=== PATIENT | male | born 1940 | race Caucasian/White ===

== ENCOUNTER 2020-12-14 17:06 | Inpatient (IN) ==
[2020-12-14] MEDS ORDERED: VANCOMYCIN INJ 1,250 MG in SODIUM CHLORIDE 0.9% 250 ML IV STA (17:47)
[2020-12-14] MEDS ORDERED: LACTATED RINGERS 500 ML IV ONE (17:47)
[2020-12-14] MEDS ORDERED: VANCOMYCIN 1,000 MG VIAL ONE (18:23)
[2020-12-14 18:58] LABS: Basophils % 0.1 % (0.0-0.8); Hematocrit 32.4 VOL% (42.0-52.0); Hemoglobin 10.5 GM/DL (14.0-18.0); Immature Granulocytes % 0.6 %; Immature Granulocytes Absolute 0.05 #; Lymphocytes # 0.1 10*3/uL (1.4-4.0); Lymphocytes % 1.6 % (21.2-54.2); Mean Corpuscular HGB Conc 32.4 GM/DL (32-36); Mean Corpuscular Volume 108.4 FL (87-102); Mean Platelet Volume 12.6 FL (9.6-12.0); Monocytes % 4.6 % (1.7-12.7); NRBC # 0.07 10*3/uL; Neutrophils % 93.1 % (38.7-73.9); Platelet Count 49 T/CUMM (130-400); Red Blood Count 2.99 MC/CUMM (3.8-5.5); Red Cell Distribution Width 16.1 % (9.3-17.3); White Blood Count 8.3 T/CUMM (4-12)
[2020-12-14] MEDS ORDERED: MORPHINE 2 MG/1 ML SYRINGE IV STA (19:04)
[2020-12-14 19:22] LABS: Bilirubin,Urine Negative (Negative); Blood, Urine Small mg/dL (Negative); Glucose,Urine (UA) Negative (Negative); Ketones,Urine Negative (Negative); Mucus,Urine Occasional /LPF (Occasional); Nitrite,Urine Negative (Negative); Protein,Urine 30 MG/DL; RBC,Urine 7 /HPF (0-4); Squamous Epithelial Cell,Urine Occasional /HPF (0-10); Urine Appearance CLEAR (Clear); Urine Color Yellow (Yellow); Urine Specific Gravity 1.055 (1.001-1.035)
[2020-12-14 19:25] LABS: Albumin 2.2 G/DL (3.4-5.0); Bilirubin,Total 1.3 MG/DL (0.20-1.00); Calcium 8.5 MG/DL (8.5-10.1); Osmolality,Calculated 290.3 MOS/KG (273-304); Potassium 3.6 MMOL/L (3.5-5.1); Total Protein 4.7 G/DL (6.4-8.2)
[2020-12-14] MEDS: LACTATED RINGERS 1,000 ML IV SCH ×2 (19:37→23:50)
[2020-12-14 19:43] LABS: Band Neutrophils 18 % (0-10); Lymphocytes 1 % (20-55); Metamyelocytes 4 %; Segmented Neutrophils 71 % (50-85); Total Cells Counted 100
[2020-12-14 19:44] LABS: Anisocytosis 1+; Toxic Granulation 1+
[2020-12-14 19:45] LABS: Polychromasia Slight; Spherocytes Slight
[2020-12-14 19:46] LABS: Macrocytosis Slight; Microcytosis Slight; Platelet Estimate Decreased
[2020-12-14] MEDS ORDERED: GLUCAGON 1 MG VIAL IM PRN (20:33)
[2020-12-14] MEDS ORDERED: ONDANSETRON 4 MG/2 ML VIAL IV PRN (20:33)
[2020-12-14] MEDS ORDERED: DEXTROSE 50% 25 GM/50 ML VIAL IV PRN (20:33)
[2020-12-14] MEDS ORDERED: HYDROmorphone 2 MG/1 ML VIAL IV PRN (21:35)
[2020-12-14] MEDS ORDERED: BISACODYL 5 MG TABLET PO PRN (22:01)
[2020-12-15] MEDS: INSULIN REGULAR 100 UNIT/ML SUBCUT SCH ×5 (00:12→21:17)
[2020-12-15 02:39] LABS: Basophils % 0.1 % (0.0-0.8); Hematocrit 32.8 VOL% (42.0-52.0); Hemoglobin 10.5 GM/DL (14.0-18.0); Immature Granulocytes % 0.3 %; Immature Granulocytes Absolute 0.02 #; Lymphocytes # 0.1 10*3/uL (1.4-4.0); Lymphocytes % 1.8 % (21.2-54.2); Mean Corpuscular Volume 110.1 FL (87-102); Mean Platelet Volume 12.7 FL (9.6-12.0); Monocytes % 2.8 % (1.7-12.7); NRBC # 0.05 10*3/uL; Platelet Count 48 T/CUMM (130-400); Red Blood Count 2.98 MC/CUMM (3.8-5.5); Red Cell Distribution Width 16.2 % (9.3-17.3); White Blood Count 7.2 T/CUMM (4-12)
[2020-12-15 02:40] LABS: Bilirubin,Total 1.3 MG/DL (0.20-1.00); Calcium 8.6 MG/DL (8.5-10.1); Osmolality,Calculated 291.1 MOS/KG (273-304); Potassium 4.1 MMOL/L (3.5-5.1); Total Protein 5.1 G/DL (6.4-8.2)
[2020-12-15 03:10] LABS: Band Neutrophils 7 % (0-10); Hypochromasia Slight; Lymphocytes 3 % (20-55); Platelet Estimate Decreased; Segmented Neutrophils 88 % (50-85); Total Cells Counted 100
[2020-12-15] MEDS ORDERED: INFLUENZA VIRUS VACCINE 0.5 ML SYRINGE IM ONE (09:00)
[2020-12-15] MEDS: PANTOPRAZOLE 40 MG TABLET PO SCH (10:15)
[2020-12-15] MEDS: VANCOMYCIN INJ 1,250 MG in SODIUM CHLORIDE 0.9% 250 ML IV SCH (12:09)
[2020-12-15] MEDS: LACTATED RINGERS 1,000 ML IV SCH (12:09)
[2020-12-15] MEDS: predniSONE 20 MG TABLET PO SCH (16:56)
[2020-12-15] MEDS: carvediloL 6.25 MG TABLET PO SCH (16:56)
[2020-12-15] MEDS ORDERED: CLOPIDOGREL 75 MG TABLET PO SCH (21:00)
[2020-12-15] MEDS ORDERED: ASPIRIN EC 81 MG TABLET PO SCH (21:00)
[2020-12-15] MEDS ORDERED: amLODIPine 10 MG TABLET PO SCH (21:00)
[2020-12-15] MEDS: POLYETHYLENE GLYCOL POWDER 17 GM PACK PO SCH (21:17)
[2020-12-15] MEDS: SIMVASTATIN 20 MG TABLET PO SCH (21:18)
[2020-12-15] MEDS: ISOSORBIDE MONONITRATE 60 MG TABLET PO SCH (21:18)
[2020-12-15] MEDS: RANOLAZINE 500 MG TABLET PO SCH (21:18)
[2020-12-16] MEDS: LACTATED RINGERS 1,000 ML IV SCH ×3 (00:32→16:05)
[2020-12-16 05:38] LABS: Basophils % 0.3 % (0.0-0.8); Hematocrit 27.2 VOL% (42.0-52.0); Hemoglobin 8.7 GM/DL (14.0-18.0); Immature Granulocytes % 0.8 %; Immature Granulocytes Absolute 0.06 #; Lymphocytes # 0.2 10*3/uL (1.4-4.0); Lymphocytes % 2.4 % (21.2-54.2); Mean Corpuscular Volume 109.2 FL (87-102); Mean Platelet Volume 12.9 FL (9.6-12.0); Monocytes % 3.1 % (1.7-12.7); NRBC # 0.02 10*3/uL; Neutrophils % 93.4 % (38.7-73.9); Red Blood Count 2.49 MC/CUMM (3.8-5.5); White Blood Count 7.7 T/CUMM (4-12)
[2020-12-16 05:44] LABS: Platelet Count 29 T/CUMM (130-400)
[2020-12-16 06:10] LABS: Calcium 8.3 MG/DL (8.5-10.1); Osmolality,Calculated 290.4 MOS/KG (273-304); Potassium 4.1 MMOL/L (3.5-5.1)
[2020-12-16] MEDS: VANCOMYCIN INJ 1,250 MG in SODIUM CHLORIDE 0.9% 250 ML IV SCH (06:12)
[2020-12-16 06:13] LABS: Hypochromasia 1+; Lymphocytes 3 % (20-55); Microcytosis 1+; Platelet Estimate Decreased; Segmented Neutrophils 94 % (50-85); Total Cells Counted 100
[2020-12-16] MEDS ORDERED: CLINDAMYCIN 600 MG/4 ML VIAL IM SCH (10:00)
[2020-12-16] MEDS: predniSONE 20 MG TABLET PO SCH (10:20)
[2020-12-16] MEDS: PANTOPRAZOLE 40 MG TABLET PO SCH (10:20)
[2020-12-16] MEDS: FOLIC ACID 1 MG TABLET PO SCH (10:20)
[2020-12-16] MEDS ORDERED: CLINDAMYCIN 600 MG/4 ML VIAL IV SCH (10:23)
[2020-12-16 10:34] LABS: ABG Base Excess 0.5 MMOL/L (-2.5-2.5); ABG Oxygen Saturation 97.2 % (95-100); ABG PH 7.466 (7.35-7.45)
[2020-12-16] MEDS: carvediloL 6.25 MG TABLET PO SCH ×2 (11:57→18:36)
[2020-12-16] MEDS: INSULIN REGULAR 100 UNIT/ML SUBCUT SCH ×4 (11:57→21:15)
[2020-12-16] MEDS: CLINDAMYCIN INJ 600 MG/50 ML PREMIX IV SCH ×2 (15:01→18:36)
[2020-12-16] MEDS: ALBUTEROL 2.5 MG/3 ML NEB RESP TX SCH ×2 (16:24→19:03)
[2020-12-16] MEDS: RANOLAZINE 500 MG TABLET PO SCH (21:14)
[2020-12-16] MEDS: ISOSORBIDE MONONITRATE 60 MG TABLET PO SCH (21:14)
[2020-12-16] MEDS: POLYETHYLENE GLYCOL POWDER 17 GM PACK PO SCH (21:14)
[2020-12-16] MEDS: SIMVASTATIN 20 MG TABLET PO SCH (21:14)
[2020-12-17] MEDS: ALBUTEROL 2.5 MG/3 ML NEB RESP TX SCH ×4 (00:23→19:07)
[2020-12-17] MEDS: CLINDAMYCIN INJ 600 MG/50 ML PREMIX IV SCH ×5 (01:04→23:10)
[2020-12-17] MEDS: VANCOMYCIN INJ 1,250 MG in SODIUM CHLORIDE 0.9% 250 ML IV SCH (01:35)
[2020-12-17 05:45] LABS: Basophils % 0.2 % (0.0-0.8); Eosinophils % 0.1 % (0.00-10.9); Hematocrit 26.8 VOL% (42.0-52.0); Hemoglobin 8.3 GM/DL (14.0-18.0); Immature Granulocytes % 0.7 %; Immature Granulocytes Absolute 0.08 #; Lymphocytes # 0.1 10*3/uL (1.4-4.0); Lymphocytes % 1.2 % (21.2-54.2); Mean Corpuscular Volume 110.7 FL (87-102); Mean Platelet Volume 13.2 FL (9.6-12.0); Monocytes % 2.1 % (1.7-12.7); NRBC # 0.03 10*3/uL; Neutrophils % 95.7 % (38.7-73.9); Platelet Count 43 T/CUMM (130-400); Red Blood Count 2.42 MC/CUMM (3.8-5.5); Red Cell Distribution Width 15.6 % (9.3-17.3); White Blood Count 11.7 T/CUMM (4-12)
[2020-12-17 06:14] LABS: Lymphocytes 5 % (20-55); Nucleated Red Blood Cells 1 (0-5); Platelet Estimate Decreased; Segmented Neutrophils 92 % (50-85); Total Cells Counted 100
[2020-12-17 06:15] LABS: Hypochromasia Slight; Microcytosis Slight
[2020-12-17] MEDS: PANTOPRAZOLE 40 MG TABLET PO SCH (08:29)
[2020-12-17] MEDS: FOLIC ACID 1 MG TABLET PO SCH (08:29)
[2020-12-17] MEDS: predniSONE 20 MG TABLET PO SCH (08:29)
[2020-12-17] MEDS: INSULIN REGULAR 100 UNIT/ML SUBCUT SCH ×4 (08:29→21:32)
[2020-12-17] MEDS: carvediloL 6.25 MG TABLET PO SCH ×2 (08:29→17:31)
[2020-12-17] MEDS: ceFAZolin 2,000 MG/50 ML DUPLEX IV SCH ×3 (09:02→23:52)
[2020-12-17] MEDS: LACTATED RINGERS 1,000 ML IV SCH (09:03)
[2020-12-17] MEDS: SIMVASTATIN 20 MG TABLET PO SCH (21:32)
[2020-12-17] MEDS: POLYETHYLENE GLYCOL POWDER 17 GM PACK PO SCH (21:32)
[2020-12-17] MEDS: RANOLAZINE 500 MG TABLET PO SCH (21:32)
[2020-12-17] MEDS: ISOSORBIDE MONONITRATE 60 MG TABLET PO SCH (21:32)
[2020-12-18] MEDS: ALBUTEROL 2.5 MG/3 ML NEB RESP TX SCH ×4 (00:03→20:07)
[2020-12-18] MEDS: LACTATED RINGERS 1,000 ML IV SCH (01:01)
[2020-12-18 05:57] LABS: Basophils % 0.2 % (0.0-0.8); Eosinophils % 0.2 % (0.00-10.9); Hematocrit 25.4 VOL% (42.0-52.0); Immature Granulocytes % 0.9 %; Immature Granulocytes Absolute 0.11 #; Lymphocytes # 0.2 10*3/uL (1.4-4.0); Lymphocytes % 1.5 % (21.2-54.2); Mean Corpuscular HGB Conc 31.5 GM/DL (32-36); Mean Platelet Volume 13.6 FL (9.6-12.0); Monocytes % 2.1 % (1.7-12.7); NRBC # 0.02 10*3/uL; Neutrophils % 95.1 % (38.7-73.9); Platelet Count 54 T/CUMM (130-400); Red Blood Count 2.31 MC/CUMM (3.8-5.5); White Blood Count 11.6 T/CUMM (4-12)
[2020-12-18 06:02] LABS: Calcium 8.2 MG/DL (8.5-10.1); Osmolality,Calculated 292.7 MOS/KG (273-304); Potassium 4.3 MMOL/L (3.5-5.1)
[2020-12-18 06:07] LABS: Hypochromasia 1+; Lymphocytes 2 % (20-55); Microcytosis 1+; Platelet Estimate Decreased; Segmented Neutrophils 95 % (50-85); Total Cells Counted 100
[2020-12-18] MEDS: CLINDAMYCIN INJ 600 MG/50 ML PREMIX IV SCH ×3 (06:19→17:44)
[2020-12-18] MEDS: carvediloL 6.25 MG TABLET PO SCH ×2 (08:18→17:00)
[2020-12-18] MEDS: ceFAZolin 2,000 MG/50 ML DUPLEX IV SCH ×2 (08:18→17:00)
[2020-12-18] MEDS: predniSONE 20 MG TABLET PO SCH (08:18)
[2020-12-18] MEDS: PANTOPRAZOLE 40 MG TABLET PO SCH (08:18)
[2020-12-18] MEDS: FOLIC ACID 1 MG TABLET PO SCH (08:18)
[2020-12-18] MEDS: INSULIN REGULAR 100 UNIT/ML SUBCUT SCH ×4 (08:47→22:07)
[2020-12-18 10:47] LABS: ABG HCO3 26.1 MMOL/L (20-26); ABG PCO2 34.2 MM HG (35-48); ABG PH 7.478 (7.35-7.45); ABG PO2 58.8 MM HG (80-95); ABG TCO2 23.5 MMOL/L (23-27)
[2020-12-18] MEDS ORDERED: FUROSEMIDE 40 MG/4 ML VIAL IV ONE (11:45)
[2020-12-18] MEDS: AZITHROMYCIN INJ 500 MG in SODIUM CHLORIDE 0.9% 250 ML IV SCH (11:49)
[2020-12-18] MEDS: ISOSORBIDE MONONITRATE 60 MG TABLET PO SCH (22:07)
[2020-12-18] MEDS: RANOLAZINE 500 MG TABLET PO SCH (22:07)
[2020-12-18] MEDS: SIMVASTATIN 20 MG TABLET PO SCH (22:07)
[2020-12-18] MEDS: POLYETHYLENE GLYCOL POWDER 17 GM PACK PO SCH (22:07)
[2020-12-18] MEDS: ZINC OXIDE 16% PASTE 57 GM TUBE TOP SCH (22:14)
[2020-12-19] MEDS: CLINDAMYCIN INJ 600 MG/50 ML PREMIX IV SCH ×5 (00:10→23:44)
[2020-12-19] MEDS: ceFAZolin 2,000 MG/50 ML DUPLEX IV SCH ×3 (00:50→16:25)
[2020-12-19] MEDS: ALBUTEROL 2.5 MG/3 ML NEB RESP TX SCH ×4 (00:52→19:55)
[2020-12-19 05:57] LABS: Basophils % 0.1 % (0.0-0.8); Eosinophils % 0.4 % (0.00-10.9); Hematocrit 25.5 VOL% (42.0-52.0); Hemoglobin 8.2 GM/DL (14.0-18.0); Immature Granulocytes Absolute 0.09 #; Lymphocytes # 0.2 10*3/uL (1.4-4.0); Lymphocytes % 1.9 % (21.2-54.2); Mean Corpuscular HGB Conc 32.2 GM/DL (32-36); Mean Corpuscular Volume 108.5 FL (87-102); Mean Platelet Volume 12.3 FL (9.6-12.0); Monocytes % 2.2 % (1.7-12.7); Neutrophils % 94.4 % (38.7-73.9); Platelet Count 77 T/CUMM (130-400); Red Blood Count 2.35 MC/CUMM (3.8-5.5); Red Cell Distribution Width 14.6 % (9.3-17.3); White Blood Count 9.5 T/CUMM (4-12)
[2020-12-19 06:18] LABS: Calcium 8.1 MG/DL (8.5-10.1); Osmolality,Calculated 290.5 MOS/KG (273-304); Potassium 3.8 MMOL/L (3.5-5.1)
[2020-12-19 06:30] LABS: Band Neutrophils 1 % (0-10); Eosinophils 2 % (0-10); Hypochromasia 1+; Lymphocytes 2 % (20-55); Microcytosis 1+; Nucleated Red Blood Cells 1 (0-5); Platelet Estimate Decreased; Segmented Neutrophils 90 % (50-85); Total Cells Counted 100
[2020-12-19] MEDS: INSULIN REGULAR 100 UNIT/ML SUBCUT SCH ×4 (07:50→22:16)
[2020-12-19] MEDS ORDERED: FUROSEMIDE 40 MG/4 ML VIAL IV ONE (08:05)
[2020-12-19] MEDS: FOLIC ACID 1 MG TABLET PO SCH (09:06)
[2020-12-19] MEDS: carvediloL 6.25 MG TABLET PO SCH ×2 (09:06→16:25)
[2020-12-19] MEDS: PANTOPRAZOLE 40 MG TABLET PO SCH (09:06)
[2020-12-19] MEDS: predniSONE 20 MG TABLET PO SCH (09:06)
[2020-12-19] MEDS: ZINC OXIDE 16% PASTE 57 GM TUBE TOP SCH ×2 (09:07→22:17)
[2020-12-19] MEDS: LACTATED RINGERS 1,000 ML IV SCH (09:38)
[2020-12-19] MEDS: AZITHROMYCIN INJ 500 MG in SODIUM CHLORIDE 0.9% 250 ML IV SCH (13:19)
[2020-12-19] MEDS: ISOSORBIDE MONONITRATE 60 MG TABLET PO SCH (22:15)
[2020-12-19] MEDS: RANOLAZINE 500 MG TABLET PO SCH (22:15)
[2020-12-19] MEDS: POLYETHYLENE GLYCOL POWDER 17 GM PACK PO SCH (22:16)
[2020-12-19] MEDS: SIMVASTATIN 20 MG TABLET PO SCH (22:16)
[2020-12-20] MEDS: ceFAZolin 2,000 MG/50 ML DUPLEX IV SCH ×3 (00:18→16:21)
[2020-12-20] MEDS: ALBUTEROL 2.5 MG/3 ML NEB RESP TX SCH ×4 (01:13→19:31)
[2020-12-20 05:19] LABS: Basophils % 0.1 % (0.0-0.8); Eosinophils % 0.4 % (0.00-10.9); Hemoglobin 7.7 GM/DL (14.0-18.0); Immature Granulocytes Absolute 0.11 #; Lymphocytes # 0.3 10*3/uL (1.4-4.0); Lymphocytes % 2.8 % (21.2-54.2); Mean Corpuscular HGB Conc 32.1 GM/DL (32-36); Mean Corpuscular Volume 108.1 FL (87-102); Mean Platelet Volume 12.8 FL (9.6-12.0); Monocytes % 2.5 % (1.7-12.7); NRBC # 0.09 10*3/uL; Neutrophils % 93.2 % (38.7-73.9); Platelet Count 82 T/CUMM (130-400); Red Blood Count 2.22 MC/CUMM (3.8-5.5); Red Cell Distribution Width 14.3 % (9.3-17.3); White Blood Count 10.5 T/CUMM (4-12)
[2020-12-20 05:37] LABS: Calcium 8.3 MG/DL (8.5-10.1); Potassium 3.6 MMOL/L (3.5-5.1)
[2020-12-20 05:41] LABS: Band Neutrophils 3 % (0-10); Lymphocytes 1 % (20-55); Platelet Estimate Decreased; Segmented Neutrophils 95 % (50-85); Total Cells Counted 100
[2020-12-20 05:42] LABS: Hypochromasia 1+
[2020-12-20] MEDS: CLINDAMYCIN INJ 600 MG/50 ML PREMIX IV SCH (05:43)
[2020-12-20 08:06] LABS: Folate 18.77 NG/ML (5.38-24.0)
[2020-12-20] MEDS: predniSONE 20 MG TABLET PO SCH (08:49)
[2020-12-20] MEDS: carvediloL 6.25 MG TABLET PO SCH ×2 (08:49→16:20)
[2020-12-20] MEDS: ZINC OXIDE 16% PASTE 57 GM TUBE TOP SCH ×2 (08:50→21:08)
[2020-12-20] MEDS: PANTOPRAZOLE 40 MG TABLET PO SCH (08:50)
[2020-12-20] MEDS: FOLIC ACID 1 MG TABLET PO SCH (08:50)
[2020-12-20] MEDS: INSULIN REGULAR 100 UNIT/ML SUBCUT SCH ×4 (08:50→21:06)
[2020-12-20] MEDS ORDERED: SODIUM CHLORIDE 0.9% 1,000 ML IV PRN (09:22)
[2020-12-20] MEDS: AZITHROMYCIN INJ 500 MG in SODIUM CHLORIDE 0.9% 250 ML IV SCH (11:54)
[2020-12-20] MEDS ORDERED: FUROSEMIDE 40 MG/4 ML VIAL IV ONE (17:25)
[2020-12-20] MEDS: POLYETHYLENE GLYCOL POWDER 17 GM PACK PO SCH (21:04)
[2020-12-20] MEDS: RANOLAZINE 500 MG TABLET PO SCH (21:06)
[2020-12-20] MEDS: ISOSORBIDE MONONITRATE 60 MG TABLET PO SCH (21:06)
[2020-12-20] MEDS: SIMVASTATIN 20 MG TABLET PO SCH (21:06)
[2020-12-21] MEDS: ceFAZolin 2,000 MG/50 ML DUPLEX IV SCH ×3 (00:17→17:07)
[2020-12-21] MEDS: ALBUTEROL 2.5 MG/3 ML NEB RESP TX SCH ×4 (00:21→19:25)
[2020-12-21 07:23] LABS: Basophils % 0.1 % (0.0-0.8); Eosinophils % 0.3 % (0.00-10.9); Immature Granulocytes % 1.8 %; Immature Granulocytes Absolute 0.19 #; Lymphocytes # 0.3 10*3/uL (1.4-4.0); Lymphocytes % 2.8 % (21.2-54.2); Mean Corpuscular Volume 108.2 FL (87-102); Mean Platelet Volume 12.3 FL (9.6-12.0); Monocytes % 2.9 % (1.7-12.7); NRBC # 0.21 10*3/uL; Neutrophils % 92.1 % (38.7-73.9); Platelet Count 103 T/CUMM (130-400); Red Blood Count 2.31 MC/CUMM (3.8-5.5); Red Cell Distribution Width 14.3 % (9.3-17.3); White Blood Count 10.7 T/CUMM (4-12)
[2020-12-21 07:46] LABS: Band Neutrophils 3 % (0-10); Lymphocytes 3 % (20-55); Nucleated Red Blood Cells 6 (0-5); Platelet Estimate Normal; Segmented Neutrophils 92 % (50-85)
[2020-12-21 07:47] LABS: Hypochromasia Slight; Total Cells Counted 100
[2020-12-21 07:52] LABS: Calcium 8.3 MG/DL (8.5-10.1); Osmolality,Calculated 282.8 MOS/KG (273-304); Potassium 3.5 MMOL/L (3.5-5.1)
[2020-12-21] MEDS: predniSONE 20 MG TABLET PO SCH (08:55)
[2020-12-21] MEDS: ZINC OXIDE 16% PASTE 57 GM TUBE TOP SCH ×2 (08:55→21:54)
[2020-12-21] MEDS: carvediloL 6.25 MG TABLET PO SCH ×2 (08:55→17:07)
[2020-12-21] MEDS: PANTOPRAZOLE 40 MG TABLET PO SCH (08:55)
[2020-12-21] MEDS: FOLIC ACID 1 MG TABLET PO SCH (08:55)
[2020-12-21] MEDS: INSULIN REGULAR 100 UNIT/ML SUBCUT SCH ×4 (09:41→21:54)
[2020-12-21] MEDS: AZITHROMYCIN INJ 500 MG in SODIUM CHLORIDE 0.9% 250 ML IV SCH (11:38)
[2020-12-21] MEDS: ASPIRIN CHEW 81 MG TABLET PO SCH (11:39)
[2020-12-21] MEDS ORDERED: FUROSEMIDE 40 MG/4 ML VIAL IV ONE (13:30)
[2020-12-21] MEDS: RANOLAZINE 500 MG TABLET PO SCH (21:52)
[2020-12-21] MEDS: SIMVASTATIN 20 MG TABLET PO SCH (21:52)
[2020-12-21] MEDS: ISOSORBIDE MONONITRATE 60 MG TABLET PO SCH (21:53)
[2020-12-21] MEDS: POLYETHYLENE GLYCOL POWDER 17 GM PACK PO SCH (21:54)
[2020-12-22] MEDS: ceFAZolin 2,000 MG/50 ML DUPLEX IV SCH ×3 (00:40→17:29)
[2020-12-22] MEDS: ALBUTEROL 2.5 MG/3 ML NEB RESP TX SCH ×5 (00:41→23:52)
[2020-12-22 06:10] LABS: Basophils % 0.2 % (0.0-0.8); Eosinophils # 0.1 10*3/uL (0.0-0.87); Eosinophils % 0.8 % (0.00-10.9); Hematocrit 26.6 VOL% (42.0-52.0); Hemoglobin 8.5 GM/DL (14.0-18.0); Immature Granulocytes % 2.6 %; Immature Granulocytes Absolute 0.31 #; Lymphocytes # 0.5 10*3/uL (1.4-4.0); Lymphocytes % 4.5 % (21.2-54.2); Mean Corpuscular Volume 108.1 FL (87-102); Mean Platelet Volume 12.1 FL (9.6-12.0); Monocytes % 3.7 % (1.7-12.7); NRBC # 0.23 10*3/uL; Neutrophils % 88.2 % (38.7-73.9); Platelet Count 156 T/CUMM (130-400); Red Blood Count 2.46 MC/CUMM (3.8-5.5); White Blood Count 11.8 T/CUMM (4-12)
[2020-12-22 06:21] LABS: Calcium 8.6 MG/DL (8.5-10.1); Potassium 3.5 MMOL/L (3.5-5.1)
[2020-12-22 06:48] LABS: Anisocytosis 2+; Platelet Estimate Normal; Polychromasia Slight
[2020-12-22 06:49] LABS: Macrocytosis Slight
[2020-12-22] MEDS: INSULIN REGULAR 100 UNIT/ML SUBCUT SCH ×4 (07:14→21:26)
[2020-12-22] MEDS: ASPIRIN CHEW 81 MG TABLET PO SCH (08:55)
[2020-12-22] MEDS: FOLIC ACID 1 MG TABLET PO SCH (08:55)
[2020-12-22] MEDS: ZINC OXIDE 16% PASTE 57 GM TUBE TOP SCH ×2 (08:55→21:26)
[2020-12-22] MEDS: PANTOPRAZOLE 40 MG TABLET PO SCH (08:55)
[2020-12-22] MEDS: carvediloL 6.25 MG TABLET PO SCH ×2 (08:55→17:29)
[2020-12-22] MEDS: predniSONE 20 MG TABLET PO SCH (08:55)
[2020-12-22] MEDS: AZITHROMYCIN INJ 500 MG in SODIUM CHLORIDE 0.9% 250 ML IV SCH (11:48)
[2020-12-22] MEDS: POLYETHYLENE GLYCOL POWDER 17 GM PACK PO SCH (21:23)
[2020-12-22] MEDS: RANOLAZINE 500 MG TABLET PO SCH (21:24)
[2020-12-22] MEDS: ISOSORBIDE MONONITRATE 60 MG TABLET PO SCH (21:25)
[2020-12-22] MEDS: SIMVASTATIN 20 MG TABLET PO SCH (21:25)
[2020-12-22] MEDS: ACETAMINOPHEN 325 MG TABLET PO PRN (21:26)
[2020-12-23] MEDS: ceFAZolin 2,000 MG/50 ML DUPLEX IV SCH ×3 (00:17→16:33)
[2020-12-23] MEDS: ALBUTEROL 2.5 MG/3 ML NEB RESP TX SCH ×3 (06:55→19:53)
[2020-12-23 07:46] LABS: Basophils % 0.1 % (0.0-0.8); Eosinophils # 0.1 10*3/uL (0.0-0.87); Eosinophils % 0.8 % (0.00-10.9); Hematocrit 26.1 VOL% (42.0-52.0); Hemoglobin 8.1 GM/DL (14.0-18.0); Immature Granulocytes Absolute 0.36 #; Lymphocytes # 0.5 10*3/uL (1.4-4.0); Lymphocytes % 4.1 % (21.2-54.2); Mean Corpuscular Volume 105.7 FL (87-102); Mean Platelet Volume 11.8 FL (9.6-12.0); Monocytes % 3.6 % (1.7-12.7); NRBC # 0.12 10*3/uL; Neutrophils % 88.4 % (38.7-73.9); Platelet Count 186 T/CUMM (130-400); Red Blood Count 2.47 MC/CUMM (3.8-5.5); Red Cell Distribution Width 14.1 % (9.3-17.3); White Blood Count 11.8 T/CUMM (4-12)
[2020-12-23 07:56] LABS: Calcium 8.5 MG/DL (8.5-10.1); Potassium 3.1 MMOL/L (3.5-5.1)
[2020-12-23 08:15] LABS: Band Neutrophils 13 % (0-10); Lymphocytes 6 % (20-55); Nucleated Red Blood Cells 1 (0-5); Platelet Estimate Normal; Segmented Neutrophils 78 % (50-85); Total Cells Counted 100
[2020-12-23 08:16] LABS: Anisocytosis 2+; Macrocytosis 1+
[2020-12-23 08:17] LABS: Basophilic Stippling Slight; Polychromasia Slight
[2020-12-23] MEDS: INSULIN REGULAR 100 UNIT/ML SUBCUT SCH ×4 (08:52→20:40)
[2020-12-23] MEDS: ZINC OXIDE 16% PASTE 57 GM TUBE TOP SCH ×2 (09:10→20:13)
[2020-12-23] MEDS: ASPIRIN CHEW 81 MG TABLET PO SCH (09:10)
[2020-12-23] MEDS: carvediloL 6.25 MG TABLET PO SCH ×2 (09:10→18:05)
[2020-12-23] MEDS: predniSONE 20 MG TABLET PO SCH (09:10)
[2020-12-23] MEDS: FOLIC ACID 1 MG TABLET PO SCH (09:10)
[2020-12-23] MEDS: PANTOPRAZOLE 40 MG TABLET PO SCH (09:10)
[2020-12-23] MEDS ORDERED: POTASSIUM CHLORIDE 20 MEQ TABLET PO ONE (10:26)
[2020-12-23] MEDS: DOCUSATE SODIUM 100 MG CAPSULE PO SCH ×2 (11:57→20:12)
[2020-12-23] MEDS: RANOLAZINE 500 MG TABLET PO SCH (20:11)
[2020-12-23] MEDS: ISOSORBIDE MONONITRATE 60 MG TABLET PO SCH (20:12)
[2020-12-23] MEDS: ACETAMINOPHEN 325 MG TABLET PO PRN (20:12)
[2020-12-23] MEDS: SIMVASTATIN 20 MG TABLET PO SCH (20:12)
[2020-12-23] MEDS: POLYETHYLENE GLYCOL POWDER 17 GM PACK PO SCH (20:13)
[2020-12-24] MEDS: ALBUTEROL 2.5 MG/3 ML NEB RESP TX SCH ×4 (00:23→20:27)
[2020-12-24] MEDS: ceFAZolin 2,000 MG/50 ML DUPLEX IV SCH ×3 (00:36→16:09)
[2020-12-24 05:59] LABS: Basophils % 0.2 % (0.0-0.8); Eosinophils # 0.1 10*3/uL (0.0-0.87); Eosinophils % 0.7 % (0.00-10.9); Hematocrit 27.3 VOL% (42.0-52.0); Hemoglobin 8.5 GM/DL (14.0-18.0); Immature Granulocytes % 4.2 %; Immature Granulocytes Absolute 0.45 #; Lymphocytes # 0.5 10*3/uL (1.4-4.0); Mean Corpuscular HGB Conc 31.1 GM/DL (32-36); Mean Corpuscular Volume 107.9 FL (87-102); Mean Platelet Volume 11.7 FL (9.6-12.0); Monocytes % 4.8 % (1.7-12.7); Neutrophils % 85.1 % (38.7-73.9); Platelet Count 207 T/CUMM (130-400); Red Blood Count 2.53 MC/CUMM (3.8-5.5); Red Cell Distribution Width 14.1 % (9.3-17.3); White Blood Count 10.6 T/CUMM (4-12)
[2020-12-24 06:28] LABS: Calcium 8.4 MG/DL (8.5-10.1); Osmolality,Calculated 276.8 MOS/KG (273-304); Potassium 3.4 MMOL/L (3.5-5.1)
[2020-12-24] MEDS ORDERED: POTASSIUM CHLORIDE 20 MEQ TABLET PO ONE (08:00)
[2020-12-24] MEDS: INSULIN REGULAR 100 UNIT/ML SUBCUT SCH ×4 (08:04→22:33)
[2020-12-24] MEDS: PANTOPRAZOLE 40 MG TABLET PO SCH (08:49)
[2020-12-24] MEDS: ASPIRIN CHEW 81 MG TABLET PO SCH (08:49)
[2020-12-24] MEDS: DOCUSATE SODIUM 100 MG CAPSULE PO SCH ×2 (08:50→22:32)
[2020-12-24] MEDS: FOLIC ACID 1 MG TABLET PO SCH (08:50)
[2020-12-24] MEDS: predniSONE 20 MG TABLET PO SCH (08:50)
[2020-12-24] MEDS: ZINC OXIDE 16% PASTE 57 GM TUBE TOP SCH ×2 (08:50→22:33)
[2020-12-24] MEDS: carvediloL 6.25 MG TABLET PO SCH ×2 (08:50→16:09)
[2020-12-24] MEDS: FUROSEMIDE 40 MG/4 ML VIAL IV SCH (16:09)
[2020-12-24] MEDS: ACETAMINOPHEN 325 MG TABLET PO PRN (19:05)
[2020-12-24] MEDS: SIMVASTATIN 20 MG TABLET PO SCH (22:32)
[2020-12-24] MEDS: RANOLAZINE 500 MG TABLET PO SCH (22:32)
[2020-12-24] MEDS: ISOSORBIDE MONONITRATE 60 MG TABLET PO SCH (22:32)
[2020-12-24] MEDS: POLYETHYLENE GLYCOL POWDER 17 GM PACK PO SCH (22:33)
[2020-12-25] MEDS: ceFAZolin 2,000 MG/50 ML DUPLEX IV SCH ×4 (00:25→23:56)
[2020-12-25] MEDS: ALBUTEROL 2.5 MG/3 ML NEB RESP TX SCH ×4 (00:28→20:00)
[2020-12-25 06:57] LABS: Basophils % 0.2 % (0.0-0.8); Eosinophils % 0.3 % (0.00-10.9); Hematocrit 25.4 VOL% (42.0-52.0); Hemoglobin 8.1 GM/DL (14.0-18.0); Immature Granulocytes % 3.7 %; Immature Granulocytes Absolute 0.36 #; Lymphocytes # 0.6 10*3/uL (1.4-4.0); Lymphocytes % 5.9 % (21.2-54.2); Mean Corpuscular HGB Conc 31.9 GM/DL (32-36); Mean Corpuscular Volume 104.5 FL (87-102); Mean Platelet Volume 11.5 FL (9.6-12.0); Monocytes % 4.9 % (1.7-12.7); NRBC # 0.11 10*3/uL; Platelet Count 239 T/CUMM (130-400); Red Blood Count 2.43 MC/CUMM (3.8-5.5); Red Cell Distribution Width 14.5 % (9.3-17.3); White Blood Count 9.7 T/CUMM (4-12)
[2020-12-25] MEDS ORDERED: PHENYLEPHRINE 1 MG/10 ML SYRINGE IV ONE (07:36)
[2020-12-25] MEDS ORDERED: ePHEDrine 50 MG/ML VIAL ONE (07:36)
[2020-12-25 07:39] LABS: Calcium 8.2 MG/DL (8.5-10.1); Osmolality,Calculated 277.7 MOS/KG (273-304); Potassium 3.1 MMOL/L (3.5-5.1)
[2020-12-25] MEDS ORDERED: POTASSIUM CHLORIDE 20 MEQ TABLET PO ONE (08:00)
[2020-12-25] MEDS: INSULIN REGULAR 100 UNIT/ML SUBCUT SCH ×4 (08:09→21:30)
[2020-12-25] MEDS ORDERED: LIDOCAINE 2% 5 ML VIAL ONE (09:02)
[2020-12-25] MEDS ORDERED: propofoL 200 MG/20 ML VIAL IV ONE (09:03)
[2020-12-25] MEDS: FOLIC ACID 1 MG TABLET PO SCH (10:04)
[2020-12-25] MEDS: carvediloL 6.25 MG TABLET PO SCH (10:04)
[2020-12-25] MEDS: DOCUSATE SODIUM 100 MG CAPSULE PO SCH ×2 (10:04→21:30)
[2020-12-25] MEDS: ASPIRIN CHEW 81 MG TABLET PO SCH (10:04)
[2020-12-25] MEDS: FUROSEMIDE 40 MG/4 ML VIAL IV SCH ×2 (10:04→17:12)
[2020-12-25] MEDS: PANTOPRAZOLE 40 MG TABLET PO SCH (10:05)
[2020-12-25] MEDS: ZINC OXIDE 16% PASTE 57 GM TUBE TOP SCH ×2 (10:05→21:30)
[2020-12-25] MEDS: predniSONE 20 MG TABLET PO SCH (10:05)
[2020-12-25] MEDS: ACETAMINOPHEN 325 MG TABLET PO PRN ×2 (10:05→21:29)
[2020-12-25] MEDS ORDERED: GLUCAGON 1 MG VIAL IM PRN (10:53)
[2020-12-25] MEDS ORDERED: DEXTROSE 50% 25 GM/50 ML VIAL IV PRN (10:53)
[2020-12-25] MEDS ORDERED: hydrALAZINE 20 MG/1 ML VIAL IM PRN (12:54)
[2020-12-25] MEDS: carvediloL 12.5 MG TABLET PO SCH (17:12)
[2020-12-25] MEDS: ISOSORBIDE MONONITRATE 60 MG TABLET PO SCH (21:29)
[2020-12-25] MEDS: RANOLAZINE 500 MG TABLET PO SCH (21:29)
[2020-12-25] MEDS: SIMVASTATIN 20 MG TABLET PO SCH (21:29)
[2020-12-25] MEDS: POLYETHYLENE GLYCOL POWDER 17 GM PACK PO SCH (21:30)
[2020-12-26] MEDS: ALBUTEROL 2.5 MG/3 ML NEB RESP TX SCH ×4 (00:59→20:12)
[2020-12-26 05:48] LABS: Basophils % 0.3 % (0.0-0.8); Hematocrit 28.4 VOL% (42.0-52.0); Immature Granulocytes % 2.6 %; Immature Granulocytes Absolute 0.28 #; Lymphocytes # 0.7 10*3/uL (1.4-4.0); Lymphocytes % 6.3 % (21.2-54.2); Mean Corpuscular HGB Conc 31.7 GM/DL (32-36); Monocytes % 5.6 % (1.7-12.7); NRBC # 0.09 10*3/uL; Neutrophils % 85.2 % (38.7-73.9); Platelet Count 171 T/CUMM (130-400); Red Blood Count 2.68 MC/CUMM (3.8-5.5); Red Cell Distribution Width 14.9 % (9.3-17.3); White Blood Count 10.6 T/CUMM (4-12)
[2020-12-26 06:10] LABS: Calcium 7.9 MG/DL (8.5-10.1); Osmolality,Calculated 276.7 MOS/KG (273-304); Potassium 3.1 MMOL/L (3.5-5.1)
[2020-12-26] MEDS: INSULIN REGULAR 100 UNIT/ML SUBCUT SCH ×4 (07:32→21:10)
[2020-12-26] MEDS: PANTOPRAZOLE 40 MG TABLET PO SCH (08:59)
[2020-12-26] MEDS: POTASSIUM CHLORIDE 20 MEQ TABLET PO PRN ×3 (08:59→21:10)
[2020-12-26] MEDS: DOCUSATE SODIUM 100 MG CAPSULE PO SCH ×2 (08:59→21:09)
[2020-12-26] MEDS: ceFAZolin 2,000 MG/50 ML DUPLEX IV SCH ×2 (09:00→16:56)
[2020-12-26] MEDS: FUROSEMIDE 40 MG/4 ML VIAL IV SCH ×2 (09:00→15:28)
[2020-12-26] MEDS: FOLIC ACID 1 MG TABLET PO SCH (09:00)
[2020-12-26] MEDS: ASPIRIN CHEW 81 MG TABLET PO SCH (09:00)
[2020-12-26] MEDS: carvediloL 12.5 MG TABLET PO SCH ×2 (09:00→16:56)
[2020-12-26] MEDS: ZINC OXIDE 16% PASTE 57 GM TUBE TOP SCH ×2 (09:00→21:09)
[2020-12-26] MEDS: predniSONE 20 MG TABLET PO SCH (09:00)
[2020-12-26] MEDS ORDERED: POTASSIUM CHLORIDE 20 MEQ TABLET PO ONE (09:05)
[2020-12-26] MEDS: ACETAMINOPHEN 325 MG TABLET PO PRN ×2 (14:10→21:16)
[2020-12-26 17:56] LABS: Bilirubin,Urine Negative (Negative); Blood, Urine Negative (Negative); Glucose,Urine (UA) >=500 mg/dL (Negative); Ketones,Urine Negative (Negative); Mucus,Urine Occasional /LPF (Occasional); Nitrite,Urine Negative (Negative); Protein,Urine Negative; RBC,Urine 1 /HPF (0-4); Urine Appearance CLEAR (Clear); Urine Color Yellow (Yellow); Urine Specific Gravity 1.006 (1.001-1.035)
[2020-12-26] MEDS: ISOSORBIDE MONONITRATE 60 MG TABLET PO SCH (21:10)
[2020-12-26] MEDS: RANOLAZINE 500 MG TABLET PO SCH (21:10)
[2020-12-26] MEDS: POLYETHYLENE GLYCOL POWDER 17 GM PACK PO SCH (21:11)
[2020-12-26] MEDS: SIMVASTATIN 20 MG TABLET PO SCH (21:11)
[2020-12-27] MEDS: ALBUTEROL 2.5 MG/3 ML NEB RESP TX SCH ×3 (00:45→13:24)
[2020-12-27] MEDS: ceFAZolin 2,000 MG/50 ML DUPLEX IV SCH ×3 (00:53→15:33)
[2020-12-27 05:43] LABS: Basophils % 0.2 % (0.0-0.8); Eosinophils % 0.2 % (0.00-10.9); Hematocrit 27.5 VOL% (42.0-52.0); Hemoglobin 8.7 GM/DL (14.0-18.0); Immature Granulocytes % 2.1 %; Lymphocytes # 0.8 10*3/uL (1.4-4.0); Lymphocytes % 7.8 % (21.2-54.2); Mean Corpuscular HGB Conc 31.6 GM/DL (32-36); Mean Corpuscular Volume 106.6 FL (87-102); Mean Platelet Volume 11.3 FL (9.6-12.0); Monocytes % 7.2 % (1.7-12.7); NRBC # 0.05 10*3/uL; Neutrophils % 82.5 % (38.7-73.9); Platelet Count 241 T/CUMM (130-400); Red Blood Count 2.58 MC/CUMM (3.8-5.5); Red Cell Distribution Width 15.5 % (9.3-17.3); White Blood Count 9.7 T/CUMM (4-12)
[2020-12-27 06:08] LABS: Calcium 8.2 MG/DL (8.5-10.1); Osmolality,Calculated 271.2 MOS/KG (273-304); Potassium 3.5 MMOL/L (3.5-5.1)
[2020-12-27] MEDS: INSULIN REGULAR 100 UNIT/ML SUBCUT SCH ×3 (08:07→17:05)
[2020-12-27] MEDS: ZINC OXIDE 16% PASTE 57 GM TUBE TOP SCH (08:41)
[2020-12-27] MEDS: PANTOPRAZOLE 40 MG TABLET PO SCH (08:41)
[2020-12-27] MEDS: carvediloL 12.5 MG TABLET PO SCH ×2 (08:41→18:54)
[2020-12-27] MEDS: FOLIC ACID 1 MG TABLET PO SCH (08:41)
[2020-12-27] MEDS: ASPIRIN CHEW 81 MG TABLET PO SCH (08:41)
[2020-12-27] MEDS: POTASSIUM CHLORIDE 20 MEQ TABLET PO PRN (08:41)
[2020-12-27] MEDS: FUROSEMIDE 40 MG/4 ML VIAL IV SCH ×3 (08:41→15:32)
[2020-12-27] MEDS: DOCUSATE SODIUM 100 MG CAPSULE PO SCH (08:41)
[2020-12-27] MEDS ORDERED: predniSONE 10 MG TABLET PO SCH (09:00)
[2020-12-27] MEDS ORDERED: INFLUENZA VIRUS VACCINE 0.5 ML SYRINGE IM ONE (10:56)
[2020-12-27] MEDS: ACETAMINOPHEN 325 MG TABLET PO PRN (11:50)
[2020-12-27 19:57] VITALS: BP 123/51
== END 2020-12-27 19:59 | disposition hospice, home (50) | DRG 871 ==
LOC: EDBD → EDSEX → EDUNIT# → N.ED 17:06 → SUATTDRO 20:35 → N.EDINP 20:35 → N.3E 22:23
PROVIDERS: ADMIT Internal Medicine; ATTEND Internal Medicine